=== PATIENT | male | born 1995 | race Two or more races ===

== ENCOUNTER 2018-12-15 19:54 | Emergency (ER) | payer BC, MEDICAID ==
[~2018-12-15] VITALS: Ht 190.5 cm; Wt 72.6 kg
[2018-12-15 20:00] VITALS: BP 116/72
--- NOTE | 2018-12-15 20:26 | NUR ---
ED Nurse Note: EKG and xray obtained medications as prescribed.
--- NOTE | 2018-12-15 20:28 | NUR ---
ED Nurse Note: Pain on inspiration for 5 days pain score 8/10. No pain at rest. No SOB, no nausea, no pain radiation
[2018-12-15] MEDS ORDERED: IBUPROFEN600 MG ORAL (21:06)
[2018-12-15] MEDS ORDERED: ROBAXIN-750750 MG PO (21:06)
--- NOTE | 2018-12-15 21:09 | NUR ---
ER DISCHARGE NOTE: Patient is cleared to be discharged per ERMD, pt is aox4, on room air. pt was given dc and prescription instructions, pt was able to verbalize understanding, pt id band removed. Patient reports improved pain score. pt is able to ambulate with steady gait. pt took all belongings.
[2018-12-15 21:10] VITALS: BP 116/72
--- NOTE | 2018-12-15 22:01 | Emergency Room Report ---
History of Present Illness General Chief Complaint: Chest Pain Source: Patient Present Illness Allergies: Coded Allergies: No Known Allergies (Unverified , 12/15/18) Nursing Documentation-PMH Hx Asthma: Yes Physical Exam Vital Signs Date Time Temp Pulse Resp B/P (MAP) Pulse Ox O2 Delivery O2 Flow Rate FiO2 12/15/18 20:00 98.4 85 20 116/72 (87) 98 Room Air Medical Decision Making Diagnostic Impression: Primary Impression: Chest wall pain EKG Diagnostic Results Rate: normal Rhythm: NSR ST Segments: no acute changes ASA given to the pt in ED: No Rhythm Strip Diag. Results EP Interpretation: yes Rhythm: NSR, no PVC's, no ectopy Last Vital Signs Date Time Temp Pulse Resp B/P (MAP) Pulse Ox O2 Delivery O2 Flow Rate FiO2 12/15/18 20:32 85 20 Room Air 12/15/18 20:00 98.4 116/72 98 Disposition: HOME, SELF-CARE Condition: Stable Scripts Methocarbamol* (ROBAXIN-750*) 750 Mg Tablet 750 MG PO TID, #21 TAB 0 Refills Prov: Wilton Arriola MD 12/15/18 Ibuprofen* (MOTRIN*) 600 Mg Tablet 600 MG ORAL Q8H PRN for For Pain, #30 TAB 0 Refills Prov: Wilton Arriola MD 12/15/18 Referrals: [facility] Patient Instructions: Chest Wall Pain, [id number] Wilton Arriola MD Dec 15, 2018 22:01
--- NOTE | 2018-12-16 12:02 | Diagnostic Imaging Report ---
Indication: Chest pain Technique: One view of the chest Comparison: none Findings: Lungs and pleural spaces are clear. Heart size is normal Impression: No acute process
== END 2018-12-15 21:09 | disposition home or self-care (01) ==
LOC: EMR 20:21
DX: R07.89 Other chest pain (principal)
CPT/HCPCS: 71045; 93005; Z7502; 99283